=== PATIENT | male | born 1985 | race Caucasian/White ===

== ENCOUNTER 2017-03-04 10:38 | Emergency (ER) | payer SELFPAY ==
[~2017-03-04] VITALS: Ht 167.6 cm; Wt 59.0 kg
[2017-03-04 11:00] VITALS: Ht 167.6 cm; Wt 59.0 kg
[2017-03-04] MEDS ORDERED: HYDROCODONE/APAP (5/325) TAB PO ONE (11:30)
[2017-03-04] MEDS ORDERED: LIDOCAINE/MYLANTA 40 ML BTL PO ONE (11:30)
[2017-03-04] MEDS ORDERED: FAMOTIDINE 20 MG TAB PO ONE (11:30)
--- NOTE | 2017-03-04 11:47 | ERD ---
ER Documentation Chief Complaint Date/Time DATE: 03/04/17 TIME: 11:46 Chief Complaint ABDOMINAL PAIN HPI Is a 31-year-old male presents to the emergency department today complaining of abdominal pain that started yesterday as well as some diarrhea. States the pain is worse today. Denies any nausea vomiting, fevers or chills ROS All systems reviewed and are negative except as per history of present illness. Medications Home Meds Active Scripts Dicyclomine Hcl* (Bentyl*) 10 Mg Capsule, 10 MG PO QID, #30 CAP Prov:AN ELLIS-C 03/04/17 Hydrocodone/Acetaminophen (Warren 5-325 Tablet) 1 Each Tablet, 1 TAB PO Q6H Y for PAIN, #7 TAB Prov:AN ELLISC 03/04/17 Acetaminophen* (Tylophen*) 500 Mg Capsule, 1 CAP PO Q6H Y for PAIN AND OR ELEVATED TEMP, #30 CAP Prov:AN ELLIS-C 03/04/17 Famotidine* (Pepcid*) 20 Mg Tablet, 20 MG PO BID for 14 Days, TAB Prov:AN ELLIS-C 03/04/17 PMhx/Soc Medical and Surgical Hx: pt denies Medical Hx, pt denies Surgical Hx Hx Alcohol Use: Yes Hx Substance Use: No Hx Tobacco Use: Yes Smoking Status: Current every day smoker Physical Exam Vitals Vital Signs Date Time Temp Pulse Resp B/P Pulse Ox O2 Delivery O2 Flow Rate FiO2 03/04/17 11:00 98.0 67 18 123/75 99 Physical Exam Const: Talking on phone, no acute distress Head: Atraumatic Eyes: Normal Conjunctiva ENT: Normal External Ears, Nose and Mouth. Neck: Full range of motion..~ No meningismus. Resp: Clear to auscultation bilaterally Cardio: Regular rate and rhythm, no murmurs Abd: Soft, epigastric tenderness. No right upper quadrant tenderness non distended. Normal bowel sounds. No tenderness at [place] Skin: No petechiae or rashes Back: No midline or flank tenderness Ext: No cyanosis, or edema Neur: Awake and alert Psych: Normal Mood and Affect Result Diagram: 03/04/17 1136 03/04/17 1136 Results 24 hrs Laboratory Tests Test 03/04/17 11:36 White Blood Count 5.210^3/ul Red Blood Count 4.6510^6/ul Hemoglobin 14.1g/dl Hematocrit 42.2% Mean Corpuscular Volume 90.8fl Mean Corpuscular Hemoglobin 30.3pg Mean Corpuscular Hemoglobin Concent 33.4g/dl Red Cell Distribution Width 13.2% Platelet Count 92248^3/UL Mean Platelet Volume 9.7fl Neutrophils % 58.2% Lymphocytes % 28.8% Monocytes % 7.4% Eosinophils % 4.6% Basophils % 0.6% Nucleated Red Blood Cells % 0.0/100WBC Neutrophils # 3.010^3/ul Lymphocytes # 1.510^3/ul Monocytes # 0.410^3/ul Eosinophils # 0.210^3/ul Basophils # 0.010^3/ul Nucleated Red Blood Cells # 0.010^3/ul Sodium Level 143mmol/L Potassium Level 4.3mmol/L Chloride Level 100mmol/L Carbon Dioxide Level 28mmol/L Anion Gap 19 Blood Urea Nitrogen 8mg/dl Creatinine 0.64mg/dl Glucose Level 127mg/dl Calcium Level 9.1mg/dl Total Bilirubin 0.1mg/dl Direct Bilirubin 0.00mg/dl Indirect Bilirubin 0.1mg/dl Aspartate Amino Transf (AST/SGOT) 19IU/L Alanine Aminotransferase (ALT/SGPT) 22IU/L Alkaline Phosphatase 71IU/L Total Protein 6.9g/dl Albumin 4.3g/dl Globulin 2.60g/dl Albumin/Globulin Ratio 1.65 Lipase 198U/L Current Medications Medications (Trade) Dose Ordered Sig/Bryson Route PRN Reason Start Time Stop Time Status Last Admin Dose Admin Famotidine (Pepcid) 20 mg ONCE ONCE PO 03/04/17 11:30 03/04/17 11:31 DC 03/04/17 11:37 Miscellaneous Medication (Gi Cocktail (2)) 40 ml ONCE ONCE PO 03/04/17 11:30 03/04/17 11:31 DC 03/04/17 11:38 Acetaminophen/ Hydrocodone Bitart (Warren (5/325)) 1 tab ONCE ONCE PO 03/04/17 11:30 03/04/17 11:31 DC 03/04/17 11:37 Procedures/MDM Is a 31-year-old male presents to the emergency department today complaining of abdominal pain that started yesterday as well as some diarrhea. On physical exam patient has epigastric pain. He denies any alcohol use however given the location of patient's pain I did obtain laboratory work Laboratory work sShows no elevated white blood cell count. He is not anemic. Platelets are within normal limits. Electrolytes are within normal limits. Glucose within normal limits. Liver enzymes are within normal limits. Lipase is within normal limits. Patient symptoms at this time is consistent with epigastric pain and likely gastritis in addition to diarrhea. Patient has no right upper quadrant pain and low suspicion for acute cholecystitis. He has no right lower quadrant pain and low suspicion for acute appendicitis or acute surgical abdomen at this time. Patient is afebrile and otherwise well-appearing. Patient was given Warren, Pepcid, GI cocktail here in the emergency department and symptoms improved. Patient was asking when he can go home. Patient given a prescription for short course of Warren, Tylenol, Pepcid and Bentyl At this time the patient is stable for discharge and outpatient management. Patient should follow up with their PCP in the next 1-2 days. They may return to the emergency department sooner for any persistent or worsening of symptoms. Patient understood and agreed with the plan. Departure Diagnosis: Primary Impression: Abdominal pain Abdominal location: epigastric Qualified Code: R10.13 - Epigastric pain Condition: AN Davis PA-C Mar 04, 2017 11:47
[2017-03-04 12:12] LABS: BASOPHILS % 0.6 % (0.0-2.0); EOSINOPHILS # 0.2 10^3/ul (0.0-0.5); EOSINOPHILS % 4.6 % (0.0-7.0); HEMATOCRIT 42.2 % (42.0-52.0); HEMOGLOBIN 14.1 g/dl (14.0-18.0); LYMPHOCYTES # 1.5 10^3/ul (0.8-2.9); LYMPHOCYTES % 28.8 % (15.0-51.0); MEAN CORPUSCULAR HEMOGLOBIN 30.3 pg (29.0-33.0); MEAN CORPUSCULAR HGB CONC 33.4 g/dl (32.0-37.0); MEAN CORPUSCULAR VOLUME 90.8 fl (82.0-101.0); MEAN PLATELET VOLUME 9.7 fl (7.4-10.4); MONOCYTE # 0.4 10^3/ul (0.3-0.9); MONOCYTES % 7.4 % (0.0-11.0); NEUTROPHILS % 58.2 % (39.0-77.0); PLATELET COUNT 244 10^3/UL (140-415); RED BLOOD COUNT 4.65 10^6/ul (4.70-6.10); RED CELL DISTRIBUTION WIDTH 13.2 % (11.5-14.5); WHITE BLOOD COUNT 5.2 10^3/ul (4.8-10.8)
[2017-03-04 12:26] LABS: ALBUMIN 4.3 g/dl (3.3-4.9); ALBUMIN/GLOBULIN RATIO 1.65; BILIRUBIN,INDIRECT 0.1 mg/dl (0-1.1); BILIRUBIN,TOTAL 0.1 mg/dl (0.2-1.3); CALCIUM 9.1 mg/dl (8.4-10.2); CREATININE 0.64 mg/dl (0.61-1.24); POTASSIUM 4.3 mmol/L (3.5-5.1); TOTAL PROTEIN 6.9 g/dl (6.1-8.1)
[2017-03-04] MEDS ORDERED: FAMO-96 PO (12:39)
[2017-03-04] MEDS ORDERED: ACET500C5 PO (12:39)
[2017-03-04] MEDS ORDERED: DICY10CA60 PO (12:40)
[2017-03-04] MEDS ORDERED: HYDR-906 PO (12:40)
== END 2017-03-04 13:09 | disposition home or self-care (01) ==
LOC: FTE 10:38
DX: R10.13 Epigastric pain (principal); F17.210 Nicotine dependence, cigarettes, uncomplicated
CPT/HCPCS: 80053; 83690; 85025; 99284